=== PATIENT | female | born 1955 | race Caucasian/White ===

== ENCOUNTER 2019-01-15 11:09 | Emergency (ER) | payer MEDICARE ==
[~2019-01-15] VITALS: Ht 165.1 cm; Wt 78.0 kg
[~2019-01-15 11:09] MED LIST: BIOTIN1 MG PO; C 250 PO; ESCITALOPRAM OX10 MG PO; LORTAB 5 OR; PREMARIN0.45 MG OR; [UNRECOGNIZED DRUG - OTHER] PO
[2019-01-15] MEDS ORDERED: PHENTERMINE H37.5 M1 PO (13:34)
[2019-01-15 15:00] VITALS: BP 130/69
[2019-01-24] MEDS ORDERED: MAGNESIUM30 MG PO (09:12)
[2019-01-24] MEDS ORDERED: POTASSIUM595 MG (09:13)
== END 2019-01-15 15:30 | disposition home or self-care (01) ==
LOC: ED 11:09
DX: S00.93XA Contusion of unspecified part of head, initial encounter (principal); S60.222A Contusion of left hand, initial encounter; S70.11XA Contusion of right thigh, initial encounter; M25.552 Pain in left hip; M25.512 Pain in left shoulder; V80.010A Animal-rider injured by fall from or being thrown from horse in noncollision accident, initial encounter; Y93.52 Activity, horseback riding; Y92.39 Other specified sports and athletic area as the place of occurrence of the external cause